=== PATIENT | female | born 1965 | race Caucasian/White ===

== ENCOUNTER 2023-08-08 16:07 | Emergency (ER) | payer BC, SELFPAY ==
[2023-08-08] VITALS (7 sets, daily range): BP systolic 121–170; BP diastolic 53–119; BMI 48.5
[2023-08-08 16:47] LABS: % Basophils 0.7 % (0-2); % Eosinophils 0.9 % (0-6); % Immature Granulocytes 0.3 % (0-0.5); % Lymphocytes 11.3 % (20.5-51.1); % Monocytes 7.3 % (1.7-9.3); % Neutrophils 79.5 % (42.2-75.2); Absolute Basophils 0.1 10^3/uL (0-0.2); Absolute Eosinophils 0.1 10^3/uL (0-0.7); Absolute Lymphocytes 1.1 10^3/uL (1.2-3.4); Absolute Monocytes 0.7 10^3/uL (0.1-0.6); Absolute Neutrophils 7.9 10^3/uL (1.4-6.5); Hematocrit 43.6 % (37.0-47.0); Hemoglobin 14.3 g/dL (12.0-16.0); Mean Corp Hgb Conc. 32.8 g/dL (33.0-37.0); Mean Corpuscular Hgb 29.6 pg (27.0-31.0); Mean Corpuscular Volume 90.3 fL (81.0-99.0); Mean Platelet Volume 9.1 fL (7.4-10.4); Nucleated Red Blood Cells % 0 %; Platelet Count 345 10^3/uL (130-400); Red Blood Cell Count 4.83 10^6/uL (4.20-5.40); Red Cell Dist. Width 13.8 % (11.5-14.5)
[2023-08-08 17:01] LABS: ALT (SGPT) 33 U/L (0-35); AST (SGOT) 44 U/L (14-36); Albumin 4.7 g/dl (3.5-5.0); Alkaline Phosphatase 115 U/L (38-126); Blood Urea Nitrogen 8 mg/dl (7-17); Calcium 10.2 mg/dl (8.4-10.2); Carbon Dioxide 28 mmol/L (22-30); Chloride 93 mmol/L (98-107); Estimated Creatinine Clearance > 125 ml/min; Glucose 102 mg/dl (70-99); Potassium 4.2 mmol/L (3.5-5.1); Sodium 131 mmol/L (135-145); Total Bilirubin 0.9 mg/dl (0.2-1.3); Total Protein 7.8 g/dl (6.3-8.2); eGFR > 60.00
[2023-08-08 17:15] LABS: Troponin I < 0.012 ng/ml
[2023-08-08 18:41] LABS: NT-proBNP 79.6 pg/ml
[2023-08-08 18:53] LABS: Lipase 108 U/L (23-300)
--- NOTE | 2023-08-08 21:02 | ED.GENMED ---
History of Present Illness
General
Chief Complaint: Chest Pain
Source: patient
Exam Limitations: none
Time Seen by Provider: 08/08/23 20:06
Travel History
Have you had any contact with someone who has COVID-19?: No
Do you have any symptoms of coronavirus? Fever > 100 degrees, chills, cough, shortness of breath, sore throat, loss of taste or smell, muscle aches, or headache?: No
History of Present Illness
History of Present Illness:
This is a 58 year old female that comes in with multiple complaints. States that she has pain in the left sided of the neck, down into both arms with the left being worse then the right, epigastric discomfort that radiates around to the back. States
that this started yesterday and has been constant. States that she is SOB for the past 2 weeks. Patient was on a plane 2 weeks ago and has a history of PE. States that her chest pain has been on and off for some time. States that she is nauseated,
vomited once today had diarrhea, and chills. Denies any fever, headache, dizziness, urinary burning.
Past History
Past History
ED Past Medical History: Arrthythmia (SVT), Asthma, GERD, HTN, Psychiatric (Anxiety, ) and Other (PE, Vertigo, Iron def anemia, bakers cyst X 3)
ED Past Surgical History: Appendectomy, (X 2), Orthopedic (Knee repair X 2 ) and Other (Hernia repair, )
Social History
Tobacco: Former smoker
Alcohol: Daily (Vodka 3-4 glasses)
Personal:
Living: with family
Review of Systems
Review of Systems
All Other Systems: ROS reviewed and negative except as documented in HPI and ROS
Constitutional: Reports chills; Denies fever
EENT: Reports no symptoms
Respiratory: Reports trouble breathing; Denies cough
Cardiac: Reports chest pain
ABD/GI: Reports abdominal pain, nausea, vomiting and diarrhea
: Reports no symptoms; Denies dysuria, frequency or urgency
Musculoskeletal: Reports no symptoms
Skin: Reports no symptoms
Neurological: Reports no symptoms; Denies dizzy or headache
Psychiatric: Reports no symptoms
Phy Exam
General Physical Exam
General Presentation: mild distress (As patient had just walked back from the bathroom. 02 saturation 92% on RA)
General age: appears stated age
General Skin: warm and dry
General Habitus: obese
General Mental: alert
General Hydration: appears well hydrated
ENT Exam
ENT Exam: TM's normal, pharynx normal and neck supple
Eye Exam
Eye Exam: EOMI
Cardiovascular Exam
Cardiovascular Exam: regular rate/rhythm and normal peripheral pulses
Pulmonary Exam
Pulmonary Exam: lungs clear, no respiratory distress, no rales, chest non tender, no crackles, no rhonchi, no wheezing and no cough
Gastrointestinal Exam
Gastrointestinal Exam: normal bowel sounds, soft, no organomegaly, no pulsatile mass, non distended and tender (Epigastric tenderness with palpation)
Musculoskeletal Exam
Musculoskeletal Exam: full ROM and edema (Ankle edema non pitting)
Skin Exam
Skin Exam: normal color, warm/dry, no rash and no petechia
Psychiatric Exam
Psychiatric Exam: normal mood/affect
Scores
Heart Score for Chest Pain Patients
STEMI patient?: No
History: Slightly or Non-Suspicious
ECG: Normal
Age: >45 - <65 years
Risk Factors: 1 or 2 Risk Factors
Troponin: </= Normal Limit
Heart Score for Chest Pain Patients: 2
Heart Score Risk: 2.5% MACE over next 6 weeks
Course
Orders/Labs/Results
Orders:
Orders
08/08/23 16:10
Electrocardiogram (*1) Urgent
Reason for Study: Chest Pain
08/08/23 16:11
EKG- Treatment ONCE
08/08/23 16:13
Electrocardiogram (*1) Urgent
Reason for Study: Chest Pain
08/08/23 16:14
CXR2 [CR Chest - 2 Views ] Urgent
Comment:
Reason For Exam: cp
08/08/23 16:33
Complete Blood Count/With Diff Urgent
Comprehensive Metabolic Panel Urgent
Lipase Urgent
Comment: ADD ON
NT-proBNP Urgent
Comment: ADD ON
Troponin I Urgent
08/08/23 18:18
Add On- LAB Urgent
Tests Added?: pro-bnp
08/08/23 18:22
Add On- LAB Urgent
Tests Added?: lipase
08/08/23 20:42
D-Dimer Urgent
08/08/23 21:01
Pantoprazole [Protonix IV] 40 mg IV NOW STA
Sucralfate Suspension [Carafate Suspension] 1 gm PO NOW STA
08/08/23 21:08
Urinalysis Reflex To Culture Urgent
Date Specimen was Collected: 08/08/23
Time Specimen was Collected: 20:55
08/08/23 21:09
CT Chest Pe Study Urgent
Comment:
Reason For Exam: SOB, Elevated D-dimer
Abnormal Lab Results
08/08/23 08/08/23 08/08/23
16:33 20:42 21:08
MCHC 32.8 L g/dL
(33.0-37.0)
Absolute Neuts (auto) 7.9 H 10^3/uL
(1.4-6.5)
Absolute Lymphs (auto) 1.1 L 10^3/uL
(1.2-3.4)
Absolute Monos (auto) 0.7 H 10^3/uL
(0.1-0.6)
Neutrophils % 79.5 H %
(42.2-75.2)
Lymphocytes % 11.3 L %
(20.5-51.1)
D-Dimer 0.69 H ug/mlFEU
(0.00-0.50)
Sodium 131 L mmol/L
(135-145)
Chloride 93 L mmol/L
(98-107)
Creatinine 0.5 L mg/dL
(0.6-1.0)
Glucose 102 H mg/dl
(70-99)
AST 44 H U/L
(14-36)
Urine Ketones 1+ A
(Negative)
08/08/23 16:33
08/08/23 16:33
Sodium slightly low. Chloride low. Glucose nonfasting. AST slightly elevated. Troponin <0.012, Pro-BNP 79.6, Lipase normal at 108, D-dimer 0.69 elevated
Vital Signs
Initial and Last Documented VS:
Initial Vital Signs
Temp Pulse Resp BP Pulse Ox
98.5 F 82 18 170/92 96
08/08/23 16:09 08/08/23 16:09 08/08/23 16:09 08/08/23 16:09 08/08/23 16:09
Last Documented Vital Signs
Temp Pulse Resp BP Pulse Ox
98.5 F 83 12 140/97 95
08/08/23 16:09 08/08/23 22:15 08/08/23 22:15 08/08/23 22:00 08/08/23 22:46
MDM/Problems Addressed
Differential Diagnosis Includes:
PE, Gastritis, Duodenal Ulcer, Pleurisy
MDM/Problems Addressed:
This is a 58 year old female that comes in with multiple complaints. States that she has pain in her left side of the neck, down both arms. Chest pain, SOB, abd pain in the epigastric area, nausea and vomiting. States that her chest pain has been on
and off for some time. States that the SOB has been for 2 weeks and she was on a plane 2 weeks ago.
Will get labs, CT chest as D-dimer elevated,
Back into see patient and . Explained that the CT is negative for any PE. Patient Troponin was negative. However, will place patient on the Cardiology hot line and also start patient on Naproxen as this could be Costochondritis/ Pleurisy.
Patient may also have a gastritis. Will place patient on Protonix to protect the stomach lining. Encouraged patient to also use her Inhalers for any SOB. Patient the patient to return with any concerns.
Chronic conditions affecting care:
History of PE
Chronic conditions affecting care: Asthma
Acute Exacerbation and/or Progression of Chronic Illness:
History of PE
Acute Exacerbation and/or Progression of Chronic Illness: Asthma
*Radiology
Radiology exam reviewed: radiology read reviewed (Chest-NO evidence of active cardiopulmonary disease CT chest- Despite repeat injection, relativly poor opacification of the inferior segmental and subsegmental pulmonary arteries. Given this
limitation, there is no CT angiographic evidence for pulmonary embolism. Band- shaped opacity within the ) and other (Ct cont- posteromedial and inferior aspect of the left lower lobe of the lung, stable since CT examination of December 14 2022.
compatible with scar. )
*Pulse Oximetry
Patient hypoxic: no
*EKG
Interpreted by ED Provider?: Yes
Heart Rate: 74
Rate: normal
Rhythm: sinus
[place]: normal axis
Interval: normal interval
QRS Pattern: normal QRS
Ischemia: no ischemia
*Corporate Legal Secretary Interpretation
Rate: normal
Heart Rate: 83
Rhythm: sinus
*Critical Care Note
Total Time (30-74mins, 75-104mins- exclusive of procedures): Not Applicable
ED Attending Note
-
Portions of this chart may have been created with voice recognition software.� Occasional wrong word or��sound alike� substitutions may have occurred due to the inherent limitations of voice recognition software.
Discharge Plan
Departure
Patient Disposition: Home (Routine Discharge)
Date of Disposition: 08/09/23
Time of Disposition: 00:05
Patient with high blood pressure during this ER visit?: Yes
Condition: Good
Covid-19: Not Applicable
Discharge Problem:
Chest pain, SOB (shortness of breath), Gastritis, Pleurisy
Instructions: Gastritis (DC), Pleuritic Chest Pain (DC), Chest Pain DCA Follow Up, BLOOD PRESSURE
Prescriptions:
New
naproxen 500 mg tablet
500 mg PO BID Qty: 10 0RF
pantoprazole [Protonix] 40 mg tablet,delayed release (DR/EC)
40 mg PO DAILY Qty: 30 0RF
No Action
fluoxetine 40 MG capsule
40 mg PO DAILY
metoprolol succinate 25 MG tablet extended release 24 hr
25 mg PO DAILY Qty: 30 3RF
Rx Instructions:
F/U WITH CARDIOLOGY FOR ADDITIONAL REFILLS WHEN D/C
esomeprazole magnesium [Nexium] 40 MG capsule,delayed release(DR/EC)
40 mg PO DAILY
diltiazem HCl 240 MG capsule,extended release 24hr
240 mg PO DAILY
sennosides [senna] 1 TABLET tablet
2 tab PO BID 0RF
aspirin 325 MG tablet
325 mg PO DAILY 0RF
magnesium hydroxide 30 ML suspension
30 ml PO DAILYPRN PRN (Reason: constipation) 0RF
docusate sodium 100 MG capsule
100 mg PO BID 0RF
gabapentin 300 MG capsule
300 mg PO BID Qty: 30 0RF
hydrocodone-acetaminophen 1 TABLET tablet
1 tab PO Q4HPRN PRN (Reason: moderate-severe pain) Qty: 30 0RF
Rx Instructions:
Dx total joint replacement
ongoing therapy
1 tab moderate pain or 2 if pain severe
hydrochlorothiazide 25 MG tablet
25 mg PO DAILY Qty: 0 0RF
Rx Instructions:
hold systolic blood pressure <130 while on Oxycodone
sucralfate [Carafate] 100 mg/mL suspension
10 ml PO ACHS Qty: 200 0RF
Referrals:
Ian Martino DO [Active] -
Vasquez Bethea DO [Family Provider] - Follow up in 2-3 days
Activity Restrictions/Additional Instructions:
As discussed, your blood work shows that your sodium is slightly low. Your Troponin is normal along with your chest x-ray and CT scan. You have been place on the Cardiology hot line. This means that the Orthopedic Assistant office will call you tomorrow and
get you into see the Orthopedic Assistant. This may also be Pleuritic chest pain. You have been given a prescription for Naproxen that will help decrease any inflammation and help with the pain. You have also been given Protonix to help with any gastritis.
Please follow up with the family doctor in 2-3 days. Two prescriptions have been sent to your Pharmacy. IF YOU HAVE INCREASED OR CHANGING PAIN, OR YOU HAVE ANY OTHER CONCERNS PLEASE RETURN TO THE EMERGENCY ROOM.
Interventions
Interventions:
*Risk Screen - Suicide Last Done: 08/08/23 16:16
*General Assessment Last Done: 08/08/23 18:26
*Neglect/Abuse Screening Last Done: 08/08/23 16:16
ED- Fall Risk Assessment Last Done: 08/08/23 16:16
*ED COVID-19 Vaccine History Last Done: 08/08/23 18:26
ED- Cardiac Assessment Last Done: 08/08/23 18:25
Discharge Date and Time
Print Language: WALLISIAN
[2023-08-08 21:03] LABS: D-Dimer 0.69 ug/mlFEU (0.00-0.50)
[2023-08-08] MEDS: PROTONIX IV 40 MG IV (21:05)
[2023-08-08] MEDS: CARAFATE SUSPENSION 1 GM PO (21:05)
[2023-08-08 21:16] LABS: Urine Albumin Negative (Neg - Trace); Urine Bilirubin Negative (Negative); Urine Character Clear (Clear); Urine Color Yellow; Urine Glucose Negative (Negative); Urine Ketone 1+ (Negative); Urine Leukocyte Negative (Negative); Urine Nitrite Negative (Negative); Urine Occult Blood Negative (Negative); Urine Urobilinogen Negative (Neg - 1+)
[2023-08-08] MEDS: TORADOL 30 MG IV (23:59)
[2023-08-09 00:17] VITALS: BP 140/87
== END 2023-08-09 00:18 | disposition home or self-care (01) ==
LOC: EMR 16:07
PROVIDERS: Clinical Nurse Specialist Family Health; Emergency Medicine; EMERGENCY PHYSICIAN Emergency Medicine; FAMILY PHYSICIAN Family Medicine
DX: R06.02 Shortness of breath (principal); K29.70 Gastritis, unspecified, without bleeding; R09.1 Pleurisy; R10.13 Epigastric pain; J45.909 Unspecified asthma, uncomplicated; K21.9 Gastro-esophageal reflux disease without esophagitis; I10 Essential (primary) hypertension; F41.9 Anxiety disorder, unspecified; D50.9 Iron deficiency anemia, unspecified; I47.10 Supraventricular tachycardia, unspecified; Z86.711 Personal history of pulmonary embolism; Z87.891 Personal history of nicotine dependence; Z90.49 Acquired absence of other specified parts of digestive tract
CPT/HCPCS: 99284; 96374; 96375; 71046; 71275; 80053; 81003; 83690; 83880; 84484; 85025; 85379; 93005; Q9967

== ENCOUNTER → 2024-03-27 12:30 | Outpatient (REF) | payer BC, SELFPAY | LOC: RAD 12:30 | PROVIDERS: ATTENDING PHYSICIAN Family Medicine | DX: M25.572 Pain in left ankle and joints of left foot (principal) | CPT/HCPCS: 73610 ==

== ENCOUNTER 2024-03-27 16:23 | Emergency (ER) | payer BC, SELFPAY ==
[2024-03-27 16:45] VITALS: BP 148/94
--- NOTE | 2024-03-27 17:49 | ED.GENMED ---
History of Present Illness
General
Chief Complaint: Musculo-Skeletal Complaint
Source: patient and spouse
Exam Limitations: none
Time Seen by Provider: 03/27/24 17:41
Nursing documentation reviewed up to this point in time: agreed with
History of Present Illness
History of Present Illness:
58-year-old female presenting to the emergency department today with concerns of left-sided ankle discomfort trip and fall 2 days ago unable to ambulate since has been using crutches. Swelling mainly to the lateral malleolus. Denies any head
trauma loss of consciousness denies significant blood thinner. Has been taking Motrin without relief of symptoms.
Past History
Past History
ED Past Medical History: Arrthythmia (SVT), Asthma, GERD, HTN, Psychiatric (Anxiety, ) and Other (PE, Vertigo, Iron def anemia, bakers cyst X 3)
ED Past Surgical History: Appendectomy, (X 2), Orthopedic (Knee repair X 2 ) and Other (Hernia repair, )
Social History
Tobacco: Former smoker
Alcohol: Daily (Vodka 3-4 glasses)
Personal:
Living: with family
Review of Systems
Review of Systems
Allergies reviewed?: Yes
All Other Systems: ROS reviewed and negative except as documented in HPI and ROS
Phy Exam
Physical Exam
Physical Exam:
GENERAL: Alert , in no apparent distress
EYE: pupils equal and reactive
NECK: Supple, no significant adenopathy.
ENT: o/p clr, mmm.
CARDIAC: Regular rate and rhythm .
LUNGS: Clear breath sounds bilaterally, no acute respiratory distress, no wheezes/rales/rhonchi
ABDOMEN: Soft, without focal tenderness, no r/g, no cvat
NEUROLOGICAL: Alert and oriented, no focal neuro deficits
SKIN: Warm and dry, skin intact.
MUSCULOSKELETAL: Swelling of the lateral malleolus no tenderness to the medial malleolus. No tenderness to the remainder of the foot or base of the fifth metatarsal no edema, well perfused.
PSYCH: Normal and appropriate interaction.
Course
Vital Signs
Initial and Last Documented VS:
Initial Vital Signs
Temp Pulse Resp BP Pulse Ox
98.2 F 75 18 148/94 97
03/27/24 16:45 03/27/24 16:45 03/27/24 16:45 03/27/24 16:45 03/27/24 16:45
Last Documented Vital Signs
Temp Pulse Resp BP Pulse Ox
98.2 F 75 18 148/94 97
03/27/24 16:45 03/27/24 16:45 03/27/24 16:45 03/27/24 16:45 03/27/24 16:45
MDM/Problems Addressed
MDM/Problems Addressed:
58-year-old female presenting to the emergency department after twisting her leftt ankle 2 days ago unable to ambulate since. Has been using crutches. Swelling mainly to the lateral malleolus. X-ray showing distal fibular fracture. No tenderness
to the tibia or the medial malleolus. Fracture seen to the distal fibula on x-ray. Neuro vastly intact given a boot already has crutches will follow-up closely with orthopedics.
*Critical Care Note
Total Time (30-74mins, 75-104mins- exclusive of procedures): Not Applicable
ED Attending Note
-
Portions of this chart may have been created with voice recognition software.� Occasional wrong word or��sound alike� substitutions may have occurred due to the inherent limitations of voice recognition software.
Discharge Plan
Departure
Patient Disposition: Home (Routine Discharge)
Date of Disposition: 03/27/24
Time of Disposition: 17:51
Patient with high blood pressure during this ER visit?: No
Condition: Good
Covid-19: Not Applicable
Discharge Problem:
Ankle fracture, left
Instructions: Ankle Fracture (DC)
Prescriptions:
New
oxycodone-acetaminophen [Endocet] 5-325 mg tablet
1 tab PO Q8H PRN (Reason: Pain) Qty: 7 0RF
No Action
fluoxetine 40 MG capsule
40 mg PO DAILY
metoprolol succinate 25 MG tablet extended release 24 hr
25 mg PO DAILY Qty: 30 3RF
Rx Instructions:
F/U WITH CARDIOLOGY FOR ADDITIONAL REFILLS WHEN D/C
esomeprazole magnesium [Nexium] 40 MG capsule,delayed release(DR/EC)
40 mg PO DAILY
diltiazem HCl 240 MG capsule,extended release 24hr
240 mg PO DAILY
sennosides [senna] 1 TABLET tablet
2 tab PO BID 0RF
aspirin 325 MG tablet
325 mg PO DAILY 0RF
magnesium hydroxide 30 ML suspension
30 ml PO DAILYPRN PRN (Reason: constipation) 0RF
docusate sodium 100 MG capsule
100 mg PO BID 0RF
gabapentin 300 MG capsule
300 mg PO BID Qty: 30 0RF
hydrocodone-acetaminophen 1 TABLET tablet
1 tab PO Q4HPRN PRN (Reason: moderate-severe pain) Qty: 30 0RF
Rx Instructions:
Dx total joint replacement
ongoing therapy
1 tab moderate pain or 2 if pain severe
hydrochlorothiazide 25 MG tablet
25 mg PO DAILY Qty: 0 0RF
Rx Instructions:
hold systolic blood pressure <130 while on Oxycodone
sucralfate [Carafate] 100 mg/mL suspension
10 ml PO ACHS Qty: 200 0RF
naproxen 500 mg tablet
500 mg PO BID Qty: 10 0RF
pantoprazole [Protonix] 40 mg tablet,delayed release (DR/EC)
40 mg PO DAILY Qty: 30 0RF
Referrals:
Alisia Strange I., DO [Active] - Follow up in 5-7 days
Activity Restrictions/Additional Instructions:
You came to the emergency department today with concerns of ankle discomfort. You are found to have a distal fibular fracture. Please wear the boot elevate ice and follow-up closely with orthopedics in the next 2 to 3 days. Return to the
emergency department for any worsening, new or concerning symptoms.
Discharge Date and Time
Print Language: SLOV[place]
== END 2024-03-27 17:54 | disposition home or self-care (01) ==
LOC: EMR 16:23
PROVIDERS: EMERGENCY PHYSICIAN Emergency Medicine; FAMILY PHYSICIAN Psychiatry & Neurology Neurology
DX: S82.892A Other fracture of left lower leg, initial encounter for closed fracture (principal); W01.0XXA Fall on same level from slipping, tripping and stumbling without subsequent striking against object, initial encounter; I10 Essential (primary) hypertension; F41.9 Anxiety disorder, unspecified; J45.909 Unspecified asthma, uncomplicated; K21.9 Gastro-esophageal reflux disease without esophagitis; I47.10 Supraventricular tachycardia, unspecified; M79.7 Fibromyalgia; D50.9 Iron deficiency anemia, unspecified; Z87.891 Personal history of nicotine dependence; Z86.711 Personal history of pulmonary embolism; Z79.82 Long term (current) use of aspirin
CPT/HCPCS: 99283; 29515; 73610